=== PATIENT | female | born 1955 | race Caucasian/White ===

== ENCOUNTER → 2019-10-17 11:20 | Outpatient (CLI) | payer OTHER, SELFPAY ==
[2019-10-17 12:32] LABS: Alanine Aminotransferase 29 IU/L (<35); Albumin 4.4 g/dL (3.5-5.0); Albumin Globulin Ratio 1.2 (1.0-2.8); Alkaline Phosphatase 99 U/L (38-126); Aspartate Aminotransferase 29 IU/L (14-36); BUN Creatinine Ratio 28.1 (6-22); Bilirubin Total 0.6 mg/dL (0.2-1.3); Blood Urea Nitrogen 34 mg/dL (7-17); Calcium 9.7 mg/dL (8.4-10.2); Carbon Dioxide 29 mmol/L (22-32); Chloride 100 mmol/L (98-107); Estimated Glomerular Filt Rate 44.5 mL/min (>60); Globulin 3.8 g/dL (1.7-4.1); Glucose 121 mg/dL (80-110); HEMOLYSIS 19 (0-50); Potassium 3.8 mmol/L (3.4-5.1); Sodium 139 mmol/L (137-145); Total Protein 8.2 g/dL (6.3-8.2)
[2019-10-17 13:17] LABS: Free T4, Direct Thyroxine 1.26 ng/dL (0.78-2.19)
[2019-10-17 13:31] LABS: Thyroid Stimulating Hormone 3.58 uIU/mL (0.47-4.68)
== END ==
PROVIDERS: Family Provider Internal Medicine; PCP Internal Medicine; Referring Provider Internal Medicine; Visit Provider Internal Medicine
DX: E03.9 Hypothyroidism, unspecified (principal); I10 Essential (primary) hypertension
CPT/HCPCS: 36415; 80053; 84439; 84443

== ENCOUNTER → 2021-02-01 12:21 | Outpatient (CLI) | payer MEDICARE, OTHER, SELFPAY ==
[2021-02-01 13:21] LABS: Alanine Aminotransferase 37 IU/L (<35); Albumin 4.3 g/dL (3.5-5.0); Albumin Globulin Ratio 1.2 (1.0-2.8); Alkaline Phosphatase 87 U/L (38-126); Aspartate Aminotransferase 45 IU/L (14-36); BUN Creatinine Ratio 18.7 (6-22); Bilirubin Total 0.9 mg/dL (0.2-1.3); Blood Urea Nitrogen 20 mg/dL (7-17); Calcium 9.3 mg/dL (8.4-10.2); Carbon Dioxide 27 mmol/L (22-32); Chloride 101 mmol/L (98-107); Cholesterol 252 mg/dL (140-199); Estimated Glomerular Filt Rate 51.1 mL/min (>60); Globulin 3.7 g/dL (1.7-4.1); Glucose 114 mg/dL (80-110); HDL Cholesterol 66 mg/dL (40-60); HEMOLYSIS 30 (0-50); LDL Cholesterol Calculated 132 mg/dL (<100); Potassium 4.1 mmol/L (3.4-5.1); Sodium 136 mmol/L (137-145); Triglycerides 268 mg/dL (35-150)
[2021-02-01 13:34] LABS: Free T4, Direct Thyroxine 0.97 ng/dL (0.78-2.19)
[2021-02-01 13:48] LABS: Thyroid Stimulating Hormone 15.2 uIU/mL (0.47-4.68)
== END ==
PROVIDERS: Family Provider Internal Medicine; PCP Internal Medicine; Referring Provider Internal Medicine; Visit Provider Internal Medicine
DX: E03.9 Hypothyroidism, unspecified (principal); I10 Essential (primary) hypertension; J45.909 Unspecified asthma, uncomplicated; N18.31 Chronic kidney disease, stage 3a
CPT/HCPCS: 36415; 80053; 80061; 84439; 84443

== ENCOUNTER → 2021-05-24 16:31 | Outpatient (CLI) | payer MEDICARE, OTHER, SELFPAY ==
[2021-05-24 18:35] LABS: Thyroid Stimulating Hormone 4.52 uIU/mL (0.47-4.68)
== END ==
PROVIDERS: Family Provider Internal Medicine; PCP Internal Medicine; Referring Provider Internal Medicine; Visit Provider Internal Medicine
DX: E03.9 Hypothyroidism, unspecified (principal)
CPT/HCPCS: 36415; 84443

== ENCOUNTER → 2022-05-16 12:21 | Outpatient (CLI) | payer MEDICARE, OTHER, SELFPAY ==
[2022-05-16 13:43] LABS: Alanine Aminotransferase 31 IU/L (<35); Albumin 4.2 g/dL (3.5-5.0); Albumin Globulin Ratio 1.2 (1.0-2.8); Alkaline Phosphatase 90 U/L (38-126); Aspartate Aminotransferase 32 IU/L (14-36); BUN Creatinine Ratio 21.7 (6-22); Bilirubin Total 0.7 mg/dL (0.2-1.3); Blood Urea Nitrogen 23 mg/dL (7-17); Calcium 9.7 mg/dL (8.4-10.2); Carbon Dioxide 28 mmol/L (22-32); Chloride 97 mmol/L (98-107); Estimated Glomerular Filt Rate 57 mL/min (>60); Globulin 3.5 g/dL (1.7-4.1); Glucose 107 mg/dL (80-110); HEMOLYSIS 23 (0-50); Potassium 4.2 mmol/L (3.4-5.1); Sodium 137 mmol/L (137-145); Total Protein 7.7 g/dL (6.3-8.2)
[2022-05-16 14:00] LABS: Free T4, Direct Thyroxine 1.21 ng/dL (0.78-2.19)
[2022-05-16 14:14] LABS: Thyroid Stimulating Hormone 7.71 uIU/mL (0.47-4.68)
== END ==
PROVIDERS: Family Provider Internal Medicine; PCP Internal Medicine; Referring Provider Internal Medicine; Visit Provider Internal Medicine
DX: E03.9 Hypothyroidism, unspecified (principal); I10 Essential (primary) hypertension; N18.31 Chronic kidney disease, stage 3a
CPT/HCPCS: 36415; 80053; 84439; 84443

== ENCOUNTER → 2023-08-21 14:49 | Outpatient (CLI) | payer MEDICARE, OTHER, SELFPAY ==
[2023-08-21 16:29] LABS: Alanine Aminotransferase 29 IU/L (<35); Albumin 4.4 g/dL (3.5-5.0); Alkaline Phosphatase 84 U/L (38-126); Aspartate Aminotransferase 30 IU/L (14-36); Bilirubin Total 0.8 mg/dL (0.2-1.3); Blood Urea Nitrogen 22 mg/dL (7-17); Calcium 9.8 mg/dL (8.4-10.2); Carbon Dioxide 31 mmol/L (22-32); Chloride 99 mmol/L (98-107); Cholesterol 248 mg/dL (140-199); Estimated Glomerular Filt Rate 54 mL/min (>60); Globulin 4.2 g/dL (1.7-4.1); Glucose 84 mg/dL (80-110); HDL Cholesterol 60 mg/dL (40-60); HEMOLYSIS < 15 (0-50); LDL Cholesterol Calculated 125 mg/dL (<100); Potassium 3.6 mmol/L (3.4-5.1); Sodium 138 mmol/L (137-145); Total Protein 8.6 g/dL (6.3-8.2); Triglycerides 314 mg/dL (35-150)
[2023-08-21 16:45] LABS: Free T4, Direct Thyroxine 1.51 ng/dL (0.78-2.19)
[2023-08-21 16:59] LABS: Thyroid Stimulating Hormone 4.31 uIU/mL (0.47-4.68)
== END ==
PROVIDERS: Family Provider Internal Medicine; PCP Internal Medicine; Referring Provider Internal Medicine; Visit Provider Internal Medicine
DX: I10 Essential (primary) hypertension (principal); N18.31 Chronic kidney disease, stage 3a; E03.9 Hypothyroidism, unspecified; E78.5 Hyperlipidemia, unspecified
CPT/HCPCS: 36415; 80053; 80061; 84439; 84443

== ENCOUNTER 2023-09-28 16:08 | Emergency (ER) | payer MEDICARE, OTHER, SELFPAY ==
[2023-09-28] VITALS (19 sets, daily range): BP systolic 121–168; BP diastolic 63–83; PULSE 62–70; RESP 14–23; TEMP 37.1; O2SAT 95–98; BMI 42.8
--- NOTE | 2023-09-28 16:56 | DI.RAD.S_ITS ---
PROCEDURE: XR CHEST 1V INDICATIONS: chest pain TECHNIQUE: One view of the chest was acquired. COMPARISON: [facility], CHEST 2 VIEW, 09/28/2017, 15:15. [facility], , CHEST 2 VIEW, 08/07/2017, 15:44. FINDINGS: Surgical changes and devices: None. Lungs and pleura: Lungs are clear. No pleural effusions or pneumothorax. Mediastinum: Mediastinal contours appear normal. Heart size is normal. Bones and chest wall: No suspicious bony lesions. Overlying soft tissues appear unremarkable. IMPRESSION: No acute cardiopulmonary abnormality is seen. Approved by: Max Doherty M.D. on 09/28/2023 at 18:17
[2023-09-28] MEDS: ASPIRIN 81 MG CHEW TAB 324 MG PO (17:14)
[2023-09-28 17:42] LABS: Add Manual Diff / Slide Review NO; Basophils Absolute Auto 100 /uL (0-100); Basophils Percent Auto 0.6 % (0-2); Eosinophils Absolute Auto 100 /uL (0-450); Eosinophils Percent Auto 1.1 % (2-4); Hematocrit 46.7 % (36-46); Hemoglobin 15.4 g/dL (12.0-16.0); Lymphocytes Absolute Auto 2200 /uL (1100-4500); Lymphocytes Percent Auto 19.3 % (25-40); Mean Corpuscular HGB Conc 32.9 % (30-36); Mean Corpuscular Hemoglobin 30.5 PG (26-34); Mean Corpuscular Volume 92.8 fL (80-100); Monocytes Absolute Auto 1100 /uL (0-900); Monocytes Percent Auto 9.2 % (3-14); Neutrophils Absolute Auto 8100 /uL (1500-7000); Neutrophils Percent Auto 69.8 % (50-75); Platelet Count 258 X10^3/uL (150-400); Red Blood Cell Count 5.04 X10^6/uL (4.0-5.2); Red Cell Distribution Width 13.8 % (11.6-14.8); White Blood Cell Count 11.6 X10^3/uL (4.5-11.0)
[2023-09-28 17:50] LABS: INR 1.1 (0.9-1.3); Prothrombin Time 12.9 SECONDS (9.4-12.5)
[2023-09-28 17:53] LABS: PTT Partial Thromboplastin Tim 37 SECONDS (25.1-36.5)
[2023-09-28 17:56] LABS: Alanine Aminotransferase 22 IU/L (<35); Albumin 4.2 g/dL (3.5-5.0); Alkaline Phosphatase 93 U/L (38-126); Aspartate Aminotransferase 35 IU/L (14-36); BUN Creatinine Ratio 17.8 (6-22); Bilirubin Total 1.2 mg/dL (0.2-1.3); Blood Urea Nitrogen 23 mg/dL (7-17); Calcium 9.8 mg/dL (8.4-10.2); Carbon Dioxide 33 mmol/L (22-32); Chloride 99 mmol/L (98-107); Creatine Kinase 126 U/L (30-135); Estimated Glomerular Filt Rate 45 mL/min (>60); Globulin 4.3 g/dL (1.7-4.1); Glucose 109 mg/dL (80-110); HEMOLYSIS < 15 (0-50); Lipase 102 U/L (23-300); Magnesium 1.9 mg/dL (1.6-2.3); Potassium 3.8 mmol/L (3.4-5.1); Sodium 136 mmol/L (137-145); Total Protein 8.5 g/dL (6.3-8.2)
--- NOTE | 2023-09-28 18:40 | ED_ITS ---
HPI - Chest Pain <Angel Summers DO - Last Filed: 09/29/23 17:58> General Chief Complaint: Chest Pain Stated Complaint: chest pain/numb arms Time Seen by Provider: 09/28/23 18:32 Source: patient Mode of arrival: Ambulatory Limitations: no limitations History of Present Illness HPI narrative: Patient is a 68-year-old female who is here for evaluation of left-sided chest pain and numbness and tingling in her arms. States the pain started approximately 3 days ago. Has been consistent since then although there are periods of time and has been worse than others. Some occasional shortness of breath. No back pain. She has never had pain like this in the past. No nausea vomiting or abdominal pain or fevers. She came in today because she was finally encouraged to do so by her . She does have history of asthma. Has a history of high blood pressure. Has been taking all of her medications as directed. She currently is still having the discomfort. Related Data Home Medications Medication Instructions Recorded Confirmed beclomethasone dipropionate 80 1 inh inhalation BID 09/29/23 09/29/23 mcg/actuation HFA breath activated aerosol (Qvar RediHaler) levothyroxine 150 mcg tablet 150 mcg PO DAILY 09/29/23 09/29/23 triamterene 75 1 tab PO DAILY 09/29/23 09/29/23 mg-hydrochlorothiazide 50 mg tablet Previous Rx's Medication Instructions Recorded albuterol sulfate 90 mcg/actuation 1 puff inhalation Q4H PRN 05/01/21 aerosol inhaler (ProAir HFA) shortness of breath or wheezing #18 grams Allergies Allergy/AdvReac Type Severity Reaction Status Date / Time penicillin G [PENICILLIN G] AdvReac Unknown Verified 09/28/23 18:27 Review of Systems <Angel Summers DO - Last Filed: 09/29/23 17:58> Review of Systems ROS Unobtainable: All systems reviewed & are unremarkable except as noted in HPI and below Patient History <Angel Summers DO - Last Filed: 09/29/23 17:58> Medical History Chronic renal failure, stage 3a Asthma Hypothyroidism Hypertension Social History marital status: number of children: 1 household members: spouse lives independently: Yes caregiver/support person: No housing: house pets and animals: Yes education level: college occupational status: employed ([employer]) current occupational exposures/hazards: No leisure activities: reading and other (Socializing with friends, caregiver for mom, education for wine/alcohol.) Smoking Status: Former smoker Tobacco: How many years used: 5 Smokeless tobacco user: other (Cigarettes) quit status: quit date established (~around the age of 28.) second hand exposure: No alcohol intake: current (1 glass a day) substance use type: does not use Smoking Status: Former smoker alcohol intake frequency: a few times a week Alcohol type: wine Substance Use Type: does not use Exam <DO Leroy Aguilar Last Filed: 09/29/23 17:58> Initial Vital Signs Initial Vital Signs: Vital Signs Temperature 98.7 F 09/28/23 16:49 Pulse Rate 70 09/28/23 16:49 Respiratory Rate 16 09/28/23 16:49 Blood Pressure 168/71 H 09/28/23 16:49 Pulse Oximetry 97 09/28/23 16:49 Oxygen Delivery Method Room Air 09/28/23 16:49 Const General: cooperative, comfortable and No ill appearing HENMT Head: normal to inspection Resp Effort & Inspection: normal respiratory effort Auscultation: clear to auscultation bilaterally Cardio Rate: regular rate Rhythm: regular rhythm GI Inspection: normal to inspection and non-distended Skin General: no rashes or lesions noted Neuro General: patient alert, patient awake, patient oriented x3 and moves all extremities Extrem General: normal to inspection and capillary refill normal <Lilliana Salomon DO - Last Filed: 09/29/23 14:32> Initial Vital Signs Initial Vital Signs: Vital Signs Temperature 98.7 F 09/28/23 16:49 Pulse Rate 70 09/28/23 16:49 Respiratory Rate 16 09/28/23 16:49 Blood Pressure 168/71 H 09/28/23 16:49 Pulse Oximetry 97 09/28/23 16:49 Oxygen Delivery Method Room Air 09/28/23 16:49 Course <DO Leroy Aguilar Last Filed: 09/29/23 17:58> Orders Ordered: ED Orders 09/29/23 12:50 PTT Partial Thromboplastin Jared Q6H Discontinued Medications Aspirin (Aspirin 81 Mg Chew Tab) 324 mg PO NOW ONE Stop: 09/28/23 16:57 Last Admin: 09/28/23 17:14 Dose: 324 mg Documented By: MARQUITA Atorvastatin Calcium (Atorvastatin 20 Mg Tablet) 80 mg PO NOW ONE Stop: 09/29/23 07:34 Last Admin: 09/29/23 07:47 Dose: Not Given Documented By: SUSY Heparin Sodium (Porcine) (Heparin 5,000 Unit/Ml Vial) 5,000 unit IV NOW ONE Stop: 09/28/23 18:33 Last Admin: 09/28/23 18:44 Dose: 5,000 unit Documented By: DENA Heparin Sodium/Dextrose (Heparin Drip) 25,000 unit in 500 mls @ 31.57 mls/hr IV CONT [facility]; Protocol Last Titration: 09/29/23 14:08 Dose: 8.6 units/kg/hr, 22.625 mls/hr Documented By: BRENDON Co-signed By: SUSY Titration: 09/29/23 13:28 Dose: 8.6 units/kg/hr, 22.625 mls/hr Documented By: SUSY Co-signed By: LEONARD Titration: 09/29/23 07:52 Dose: 8.6 units/kg/hr, 22.625 mls/hr Documented By: SUSY Co-signed By: LEONARD Admin: 09/28/23 18:44 Dose: 7.6 units/kg/hr, 20 mls/hr Documented By: SPF Co-signed By: BRENDON Levothyroxine Sodium (Levothyroxine 75 Mcg Tablet) 150 mcg PO DAILY@0600 [facility] Levothyroxine Sodium (Levothyroxine 75 Mcg Tablet) 150 mcg PO DAILY@0600 [facility] Last Admin: 09/29/23 07:42 Dose: 150 mcg Documented By: SUSY Metoprolol Succinate (Metoprolol Er 50 Mg Tablet) 50 mg PO NOW ONE Stop: 09/29/23 08:07 Last Admin: 09/29/23 08:44 Dose: 50 mg Documented By: SUSY Triamterene/Hydrochlorothiazide (Triamterene/Hctz 37.5/25 Capsule) 1 cap PO DAILY [facility] Last Admin: 09/29/23 08:44 Dose: 1 cap Documented By: SUSY Vital Signs Vital signs: Vital Signs - 8 hr 09/29/23 10:00 09/29/23 10:00 09/29/23 10:30 Pulse Rate 68 67 Respiratory Rate 16 17 Blood Pressure 110/56 L Pulse Oximetry 95 96 09/29/23 10:30 09/29/23 10:42 09/29/23 11:00 Pulse Rate 67 68 Respiratory Rate 13 20 Blood Pressure 149/73 H 149/73 H Pulse Oximetry 99 94 09/29/23 11:00 09/29/23 11:30 09/29/23 11:30 Pulse Rate 67 Respiratory Rate 18 Blood Pressure 148/71 H 158/72 H Pulse Oximetry 96 09/29/23 12:00 09/29/23 12:00 09/29/23 12:30 Pulse Rate 67 68 Respiratory Rate 20 21 Blood Pressure 151/70 H Pulse Oximetry 94 94 09/29/23 12:30 09/29/23 13:00 09/29/23 13:00 Pulse Rate 69 Respiratory Rate 19 Blood Pressure 145/68 H 138/77 Pulse Oximetry 95 09/29/23 13:30 09/29/23 13:30 09/29/23 14:00 Pulse Rate 68 Respiratory Rate 21 Blood Pressure 130/69 138/71 Pulse Oximetry 93 09/29/23 14:00 Pulse Rate 72 Respiratory Rate 16 Blood Pressure Pulse Oximetry 95 <Lilliana Salomon, - Last Filed: 09/29/23 14:32> Orders Ordered: ED Orders 09/29/23 12:50 PTT Partial Thromboplastin Jared Q6H Discontinued Medications Aspirin (Aspirin 81 Mg Chew Tab) 324 mg PO NOW ONE Stop: 09/28/23 16:57 Last Admin: 09/28/23 17:14 Dose: 324 mg Documented By: SB Atorvastatin Calcium (Atorvastatin 20 Mg Tablet) 80 mg PO NOW ONE Stop: 09/29/23 07:34 Last Admin: 09/29/23 07:47 Dose: Not Given Documented By: MPO Heparin Sodium (Porcine) (Heparin 5,000 Unit/Ml Vial) 5,000 unit IV NOW ONE Stop: 09/28/23 18:33 Last Admin: 09/28/23 18:44 Dose: 5,000 unit Documented By: SPF Heparin Sodium/Dextrose (Heparin Drip) 25,000 unit in 500 mls @ 31.57 mls/hr IV CONT [facility]; Protocol Last Titration: 09/29/23 14:08 Dose: 8.6 units/kg/hr, 22.625 mls/hr Documented By: BRENDON Co-signed By: SUSY Titration: 09/29/23 13:28 Dose: 8.6 units/kg/hr, 22.625 mls/hr Documented By: SUSY Co-signed By: LEONARD Titration: 09/29/23 07:52 Dose: 8.6 units/kg/hr, 22.625 mls/hr Documented By: SUSY Co-signed By: LEONARD Admin: 09/28/23 18:44 Dose: 7.6 units/kg/hr, 20 mls/hr Documented By: DENA Co-signed By: BRENDON Levothyroxine Sodium (Levothyroxine 75 Mcg Tablet) 150 mcg PO DAILY@0600 [facility] Levothyroxine Sodium (Levothyroxine 75 Mcg Tablet) 150 mcg PO DAILY@0600 [facility] Last Admin: 09/29/23 07:42 Dose: 150 mcg Documented By: SUSY Metoprolol Succinate (Metoprolol Er 50 Mg Tablet) 50 mg PO NOW ONE Stop: 09/29/23 08:07 Last Admin: 09/29/23 08:44 Dose: 50 mg Documented By: SUSY Triamterene/Hydrochlorothiazide (Triamterene/Hctz 37.5/25 Capsule) 1 cap PO DAILY [facility] Last Admin: 09/29/23 08:44 Dose: 1 cap Documented By: SUSY Vital Signs Vital signs: Vital Signs - 8 hr 09/29/23 10:00 09/29/23 10:00 09/29/23 10:30 Pulse Rate 68 67 Respiratory Rate 16 17 Blood Pressure 110/56 L Pulse Oximetry 95 96 09/29/23 10:30 09/29/23 10:42 09/29/23 11:00 Pulse Rate 67 68 Respiratory Rate 13 20 Blood Pressure 149/73 H 149/73 H Pulse Oximetry 99 94 09/29/23 11:00 09/29/23 11:30 09/29/23 11:30 Pulse Rate 67 Respiratory Rate 18 Blood Pressure 148/71 H 158/72 H Pulse Oximetry 96 09/29/23 12:00 09/29/23 12:00 09/29/23 12:30 Pulse Rate 67 68 Respiratory Rate 20 21 Blood Pressure 151/70 H Pulse Oximetry 94 94 09/29/23 12:30 09/29/23 13:00 09/29/23 13:00 Pulse Rate 69 Respiratory Rate 19 Blood Pressure 145/68 H 138/77 Pulse Oximetry 95 09/29/23 13:30 09/29/23 13:30 09/29/23 14:00 Pulse Rate 68 Respiratory Rate 21 Blood Pressure 130/69 138/71 Pulse Oximetry 93 09/29/23 14:00 Pulse Rate 72 Respiratory Rate 16 Blood Pressure Pulse Oximetry 95 MDM - Chest Pain <Angel Summers DO - Last Filed: 09/29/23 17:58> Lab Data Attestation: I reviewed the patient's lab results. 09/29/23 06:45 09/28/23 17:32 Labs: Lab Results 09/28/23 09/29/23 09/29/23 Range/Units 17:32 00:44 06:45 WBC 11.6 H (4.5-11.0) X10^3/uL RBC 5.04 (4.0-5.2) X10^6/uL Hgb 15.4 14.3 (12.0-16.0) g/dL Hct 46.7 H 42.0 (36-46) % MCV 92.8 (80-100) fL MCH 30.5 (26-34) PG MCHC 32.9 (30-36) % RDW 13.8 (11.6-14.8) % Plt Count 258 233 (150-400) X10^3/uL Neut % (Auto) 69.8 (50-75) % Lymph % (Auto) 19.3 L (25-40) % Chester % (Auto) 9.2 (3-14) % Eos % (Auto) 1.1 L (2-4) % Baso % (Auto) 0.6 (0-2) % Neut # (Auto) 8100 H (8592-2056) /uL Lymph # (Auto) 2200 (0025-4531) /uL Chester # (Auto) 1100 H (0-900) /uL Eos # (Auto) 100 (0-450) /uL Baso # (Auto) 100 (0-100) /uL PT 12.9 H (9.4-12.5) SECONDS INR 1.1 (0.9-1.3) APTT 37 H 54 H D 42 H D (25.1-36.5) SECONDS Sodium 136 L (137-145) mmol/L Potassium 3.8 (3.4-5.1) mmol/L Chloride 99 (98-107) mmol/L Carbon Dioxide 33 H (22-32) mmol/L BUN 23 H (7-17) mg/dL Creatinine 1.29 H (0.52-1.04) mg/dL Estimated GFR 45 L (>60) mL/min BUN/Creatinine Ratio 17.8 (6-22) Glucose 109 (80-110) mg/dL Calcium 9.8 (8.4-10.2) mg/dL Magnesium 1.9 (1.6-2.3) mg/dL Total Bilirubin 1.2 (0.2-1.3) mg/dL AST 35 (14-36) IU/L ALT 22 (<35) IU/L Alkaline Phosphatase 93 (38-126) U/L Total Creatine Kinase 126 107 109 (30-135) U/L Troponin I 4.190 H* 4.210 H* 3.620 H* (0.01-0.034) ng/mL NT-Pro-B Natriuret Pep 3370 H (<125) pg/mL Total Protein 8.5 H (6.3-8.2) g/dL Albumin 4.2 (3.5-5.0) g/dL Globulin 4.3 H (1.7-4.1) g/dL Albumin/Globulin Ratio 1.0 (1.0-2.8) Lipase 102 (23-300) U/L 03//24 Range/Units 12:50 WBC (4.5-11.0) X10^3/uL RBC (4.0-5.2) X10^6/uL Hgb (12.0-16.0) g/dL Hct (36-46) % MCV (80-100) fL MCH (26-34) PG MCHC (30-36) % RDW (11.6-14.8) % Plt Count (150-400) X10^3/uL Neut % (Auto) (50-75) % Lymph % (Auto) (25-40) % Chester % (Auto) (3-14) % Eos % (Auto) (2-4) % Baso % (Auto) (0-2) % Neut # (Auto) (5238-3993) /uL Lymph # (Auto) (1440-6234) /uL Chester # (Auto) (0-900) /uL Eos # (Auto) (0-450) /uL Baso # (Auto) (0-100) /uL PT (9.4-12.5) SECONDS INR (0.9-1.3) APTT 47 H (25.1-36.5) SECONDS Sodium (137-145) mmol/L Potassium (3.4-5.1) mmol/L Chloride (98-107) mmol/L Carbon Dioxide (22-32) mmol/L BUN (7-17) mg/dL Creatinine (0.52-1.04) mg/dL Estimated GFR (>60) mL/min BUN/Creatinine Ratio (6-22) Glucose (80-110) mg/dL Calcium (8.4-10.2) mg/dL Magnesium (1.6-2.3) mg/dL Total Bilirubin (0.2-1.3) mg/dL AST (14-36) IU/L ALT (<35) IU/L Alkaline Phosphatase (38-126) U/L Total Creatine Kinase (30-135) U/L Troponin I (0.01-0.034) ng/mL NT-Pro-B Natriuret Pep (<125) pg/mL Total Protein (6.3-8.2) g/dL Albumin (3.5-5.0) g/dL Globulin (1.7-4.1) g/dL Albumin/Globulin Ratio (1.0-2.8) Lipase (23-300) U/L Imaging Data Chest x-ray: Radiologist's Impression: [address] [address] XRay Report Signed Patient: Lidya Sawyer MR#: [id number] : 1955 Acct:[id number] Age/Sex: 68 / F Date of Service: 09/28/23 Loc: ED Accession Number: [id number] Procedure: XR chest 1V Ordering Provider: Lilliana Salomon D.O. PROCEDURE: XR CHEST 1V INDICATIONS: chest pain TECHNIQUE: One view of the chest was acquired. COMPARISON: [facility] , CHEST 2 VIEW, 09/28/2017, 15:15. [facility], CR, CHEST 2 VIEW, 08/07/2017, 15:44. FINDINGS: Surgical changes and devices: None. Lungs and pleura: Lungs are clear. No pleural effusions or pneumothorax. Mediastinum: Mediastinal contours appear normal. Heart size is normal. Bones and chest wall: No suspicious bony lesions. Overlying soft tissues appear unremarkable. IMPRESSION: No acute cardiopulmonary abnormality is seen. ECG Data Interpretation: Sinus rhythm Ventricular rate is [address] T wave changes MDM Narrative Medical decision making narrative: Patient has elevated troponin. Has had 3 days of symptoms. Chest x-ray is unremarkable. Nonspecific changes on the EKG. Is currently having a small amount of chest pain. No shortness of breath. Heparin started. Will arrange for transport for Cardiology secondary to NSTEMI. Repeat troponin is relatively unchanged. Patient has been on heparin. Patient not clinically in heart failure. Discussed the case with Cardiology at [facility] who recommended admission to the medicine service. Discussed the case with Dr. Collins hospitalist on-call at [facility] who accepts patient in transfer. Patient is stable for transport. It appears that it maybe somewhat delayed with transfer given bed availability. Patient will stay here in the emergency department until disposition can be met. <Lilliana Salomon, DO - Last Filed: 09/29/23 14:32> Lab Data Labs: Lab Results 09/28/23 09/29/23 09/29/23 Range/Units 17:32 00:44 06:45 WBC 11.6 H (4.5-11.0) X10^3/uL RBC 5.04 (4.0-5.2) X10^6/uL Hgb 15.4 14.3 (12.0-16.0) g/dL Hct 46.7 H 42.0 (36-46) % MCV 92.8 (80-100) fL MCH 30.5 (26-34) PG MCHC 32.9 (30-36) % RDW 13.8 (11.6-14.8) % Plt Count 258 233 (150-400) X10^3/uL Neut % (Auto) 69.8 (50-75) % Lymph % (Auto) 19.3 L (25-40) % Chester % (Auto) 9.2 (3-14) % Eos % (Auto) 1.1 L (2-4) % Baso % (Auto) 0.6 (0-2) % Neut # (Auto) 8100 H (4835-3642) /uL Lymph # (Auto) 2200 (1058-2813) /uL Chester # (Auto) 1100 H (0-900) /uL Eos # (Auto) 100 (0-450) /uL Baso # (Auto) 100 (0-100) /uL PT 12.9 H (9.4-12.5) SECONDS INR 1.1 (0.9-1.3) APTT 37 H 54 H D 42 H D (25.1-36.5) SECONDS Sodium 136 L (137-145) mmol/L Potassium 3.8 (3.4-5.1) mmol/L Chloride 99 (98-107) mmol/L Carbon Dioxide 33 H (22-32) mmol/L BUN 23 H (7-17) mg/dL Creatinine 1.29 H (0.52-1.04) mg/dL Estimated GFR 45 L (>60) mL/min BUN/Creatinine Ratio 17.8 (6-22) Glucose 109 (80-110) mg/dL Calcium 9.8 (8.4-10.2) mg/dL Magnesium 1.9 (1.6-2.3) mg/dL Total Bilirubin 1.2 (0.2-1.3) mg/dL AST 35 (14-36) IU/L ALT 22 (<35) IU/L Alkaline Phosphatase 93 (38-126) U/L Total Creatine Kinase 126 107 109 (30-135) U/L Troponin I 4.190 H* 4.210 H* 3.620 H* (0.01-0.034) ng/mL NT-Pro-B Natriuret Pep 3370 H (<125) pg/mL Total Protein 8.5 H (6.3-8.2) g/dL Albumin 4.2 (3.5-5.0) g/dL Globulin 4.3 H (1.7-4.1) g/dL Albumin/Globulin Ratio 1.0 (1.0-2.8) Lipase 102 (23-300) U/L /24 Range/Units 12:50 WBC (4.5-11.0) X10^3/uL RBC (4.0-5.2) X10^6/uL Hgb (12.0-16.0) g/dL Hct (36-46) % MCV (80-100) fL MCH (26-34) PG MCHC (30-36) % RDW (11.6-14.8) % Plt Count (150-400) X10^3/uL Neut % (Auto) (50-75) % Lymph % (Auto) (25-40) % Chester % (Auto) (3-14) % Eos % (Auto) (2-4) % Baso % (Auto) (0-2) % Neut # (Auto) (2241-8545) /uL Lymph # (Auto) (4647-8755) /uL Chester # (Auto) (0-900) /uL Eos # (Auto) (0-450) /uL Baso # (Auto) (0-100) /uL PT (9.4-12.5) SECONDS INR (0.9-1.3) APTT 47 H (25.1-36.5) SECONDS Sodium (137-145) mmol/L Potassium (3.4-5.1) mmol/L Chloride (98-107) mmol/L Carbon Dioxide (22-32) mmol/L BUN (7-17) mg/dL Creatinine (0.52-1.04) mg/dL Estimated GFR (>60) mL/min BUN/Creatinine Ratio (6-22) Glucose (80-110) mg/dL Calcium (8.4-10.2) mg/dL Magnesium (1.6-2.3) mg/dL Total Bilirubin (0.2-1.3) mg/dL AST (14-36) IU/L ALT (<35) IU/L Alkaline Phosphatase (38-126) U/L Total Creatine Kinase (30-135) U/L Troponin I (0.01-0.034) ng/mL NT-Pro-B Natriuret Pep (<125) pg/mL Total Protein (6.3-8.2) g/dL Albumin (3.5-5.0) g/dL Globulin (1.7-4.1) g/dL Albumin/Globulin Ratio (1.0-2.8) Lipase (23-300) U/L ECG Data Interpretation: Sinus rhythm Ventricular rate is [address] T wave changes EKG 2. Sinus rhythm rate of 73 AR 146 QRS of 92 QTC 416. Q-wave in lead 3 but not into her AVF, no other acute ST changes appreciated. Patient's EKG appears quite similar to prior from last night. [facility] Narrative Medical decision making narrative: Patient has elevated troponin. Has had 3 days of symptoms. Chest x-ray is unremarkable. Nonspecific changes on the EKG. Is currently having a small amount of chest pain. No shortness of breath. Heparin started. Will arrange for transport for Cardiology secondary to NSTEMI. Repeat troponin is relatively unchanged. Patient has been on heparin. Patient not clinically in heart failure. Discussed the case with Cardiology at [facility] who recommended admission to the medicine service. Discussed the case with Dr. Collins hospitalist on-call at [facility] who accepts patient in transfer. Patient is stable for transport. It appears that it maybe somewhat delayed with transfer given bed availability. Patient will stay here in the emergency department until disposition can be met. 09/29/2023 Dr. Salomon: Patient signed out to myself by Dr. Summers. Patient has been accepted at [facility] by Cardiology and hospitalist clinical documentation specialist, waiting for bed availability. Patient's labs, EKG and chest x-ray reviewed. Repeat troponin was pending at sign-out and is trending down words. Patient was seen and evaluated by myself. Continues to be chest pain-free is currently on heparin. Last dose of aspirin was at 5:15 p.m. so we will hold on additional dose this morning. Patient's home medications has been ordered. Repeat EKG was reviewed no significant ST changes. Patient notes that she normally takes metoprolol 50 mg once daily this was added on as well. Patient continues to be asymptomatic. Bed has become available at [facility] plan for transport. Critical Care Time <Lilliana Salomon, DO - Last Filed: 09/29/23 14:32> Critical Care Time Critical Care Time: Yes Total Critical Care Time: 35 Attestation: The high probability of a clinically significant, sudden or life threatening deterioration of the [cardiac, pulm] system(s) required my full and direct attention, intervention and personal management. The aggregate critical care time was [] minutes. This time is in addition to time spent performing reported procedures but includes the following: [x] Data Review and interpretation [x] Patient assessment and monitoring of vital signs [x] Documentation [x] Medication orders and management Discharge Plan Departure Patient Disposition: [facility] Clinical Impression: Non-ST elevation WI (NSTEMI) Prescriptions: No Action albuterol sulfate [ProAir HFA] 90 mcg/actuation HFA aerosol inhaler 1 puff INHALATION Q4H PRN (Reason: shortness of breath or wheezing) Qty: 18 9RF levothyroxine 150 mcg tablet 150 mcg PO DAILY triamterene-hydrochlorothiazid 75-50 mg tablet 1 tab PO DAILY Qvar RediHaler 80 mcg/actuation HFA aerosol breath activated 1 inh inhalation BID Referrals: Evgeny Patel MD [Primary Care Provider] -
[2023-09-28] MEDS: HEPARIN 5,000 UNIT/ML VIAL 5000 UNIT IV (18:44)
[2023-09-28] MEDS: HEPARIN DRIP 25,000 UNIT/500 ML IV.SOLN 20 UNIT IV (18:44)
--- NOTE | 2023-09-28 18:45 | PC.NURSE ---
Pt reports chest pain and bilateral arm numbness/pain that started 3 days ago. Pt denies significant medical history, stating she does not frequent the doctor's. Pt is SOB with exertion and has been sleeping in her recliner, experiencing orthopnea. chest pain is minimal at a 1/10 and for that reason pt did not seek urgent care, and didnt want to bother the doctor on the weekend.
[2023-09-28 18:48] LABS: NT-proBNP (BNP-Adult 18+) 3370 pg/mL (<125)
[2023-09-29] VITALS (34 sets, daily range): BP systolic 110–158; BP diastolic 55–80; PULSE 66–80; RESP 11–28; O2SAT 92–99; BMI 42.8
--- NOTE | 2023-09-29 00:12 | PC.NURSE ---
Addendum entered by Oli Tyson 09/29/23 02:58: Pt accepted at [facility] by Dr. Collins. waiting on bed assignment sometime during dayshift Original Note: Pt being reviewed for transfer at the following: ERIKA Richter, Joss waiting for call back by morning. [facility] full and boarding
[2023-09-29 01:01] LABS: PTT Partial Thromboplastin Tim 54 SECONDS (25.1-36.5)
[2023-09-29 01:10] LABS: Creatine Kinase 107 U/L (30-135)
[2023-09-29 06:58] LABS: Hemoglobin 14.3 g/dL (12.0-16.0); Platelet Count 233 X10^3/uL (150-400)
[2023-09-29 07:07] LABS: PTT Partial Thromboplastin Tim 42 SECONDS (25.1-36.5)
[2023-09-29 07:08] LABS: Creatine Kinase 109 U/L (30-135)
[2023-09-29] MEDS: LEVOTHYROXINE 75 MCG TABLET 150 MCG PO (07:42)
--- NOTE | 2023-09-29 08:39 | PC.NURSE ---
spoke with Jenna at [facility] pt is assigned to [facility] still no update on bed assignment but per Jenna sometime today.
[2023-09-29] MEDS: METOPROLOL ER 50 MG TABLET PO (08:44)
[2023-09-29] MEDS: TRIAMTERENE/HCTZ 37.5/25 CAPSULE 1 CAP PO (08:44)
[2023-09-29 13:11] LABS: PTT Partial Thromboplastin Tim 47 SECONDS (25.1-36.5)
--- NOTE | 2023-09-29 13:27 | PC.NURSE ---
PT 47. No changes to heparin drip per hospital heparin protocol. Heparin currently 8.6 units/kg/hr
== END 2023-09-29 14:16 | disposition short-term general hospital (02) ==
PROVIDERS: Emergency Medicine; Emergency Provider Emergency Medicine; Family Provider Internal Medicine; PCP Internal Medicine
DX: I21.4 Non-ST elevation (NSTEMI) myocardial infarction (principal); R07.9 Chest pain, unspecified; R06.02 Shortness of breath; R79.89 Other specified abnormal findings of blood chemistry
CPT/HCPCS: 36415; 71045; 80053; 82550; 83690; 83735; 83880; 84484; 85014; 85018; 85025; 85049; 85610; 85730; 93005; 96365; 96366; 96375; 99285; 99291; J1644

== ENCOUNTER 2024-06-22 14:15 | Outpatient (RCR) | payer MEDICARE, OTHER, SELFPAY ==
[2023-09-29 10:42] VITALS: BMI 42.8
== END 2024-06-22 16:15 ==
LOC: CAR 14:15
PROVIDERS: Family Provider Internal Medicine; PCP Internal Medicine; Referring Provider Internal Medicine Cardiovascular Disease; Visit Provider Internal Medicine Cardiovascular Disease
DX: Z95.5 Presence of coronary angioplasty implant and graft (principal); I21.3 ST elevation (STEMI) myocardial infarction of unspecified site
CPT/HCPCS: 93798

== ENCOUNTER → 2024-06-30 15:43 | Outpatient (CLI) | payer MEDICARE, OTHER, SELFPAY ==
[2023-09-29 10:42] VITALS: BMI 42.8
[2024-06-30 17:25] LABS: Hematocrit 47.1 % (36-46); Hemoglobin 15.7 g/dL (12.0-16.0); Mean Corpuscular HGB Conc 33.3 % (30-36); Mean Corpuscular Hemoglobin 31.6 PG (26-34); Platelet Count 255 X10^3/uL (150-400); Red Blood Cell Count 4.96 X10^6/uL (4.0-5.2); Red Cell Distribution Width 13.7 % (11.6-14.8); White Blood Cell Count 7.7 X10^3/uL (4.5-11.0)
[2024-06-30 18:08] LABS: BUN Creatinine Ratio 24.1 (6-22); Blood Urea Nitrogen 27 mg/dL (7-17); Calcium 9.7 mg/dL (8.4-10.2); Carbon Dioxide 32 mmol/L (22-32); Chloride 102 mmol/L (98-107); Cholesterol 139 mg/dL (140-199); Estimated Glomerular Filt Rate 53 mL/min (>60); Glucose 93 mg/dL (80-110); HDL Cholesterol 79 mg/dL (40-60); HEMOLYSIS < 15 (0-50); LDL Cholesterol Calculated 34 mg/dL (<100); Potassium 4.7 mmol/L (3.4-5.1); Sodium 136 mmol/L (137-145); Triglycerides 131 mg/dL (35-150)
== END ==
LOC: LAB 15:45
PROVIDERS: Family Provider Internal Medicine; PCP Internal Medicine; Referring Provider Internal Medicine Cardiovascular Disease; Visit Provider Internal Medicine Cardiovascular Disease
DX: I25.10 Atherosclerotic heart disease of native coronary artery without angina pectoris (principal)
CPT/HCPCS: 36415; 80048; 80061; 85027

== ENCOUNTER → 2025-01-06 14:57 | Outpatient (CLI) | payer MEDICARE, OTHER, SELFPAY ==
[2023-09-29 10:42] VITALS: BMI 42.8
[2025-01-06 16:10] LABS: Alanine Aminotransferase 22 IU/L (<35); Albumin 4.2 g/dL (3.5-5.0); Albumin Globulin Ratio 1.4 (1.0-2.8); Alkaline Phosphatase 101 U/L (38-126); Aspartate Aminotransferase 22 IU/L (14-36); BUN Creatinine Ratio 18.2 (6-22); Blood Urea Nitrogen 20 mg/dL (7-17); Calcium 9.5 mg/dL (8.4-10.2); Carbon Dioxide 29 mmol/L (22-32); Chloride 100 mmol/L (98-107); Cholesterol 135 mg/dL (140-199); Estimated Glomerular Filt Rate 54 mL/min (>60); Glucose 117 mg/dL (70-99); HDL Cholesterol 75 mg/dL (40-60); HEMOLYSIS < 15 (0-50); LDL Cholesterol Calculated 26 mg/dL (<100); Potassium 4.4 mmol/L (3.4-5.1); Sodium 137 mmol/L (137-145); Total Protein 7.2 g/dL (6.3-8.2); Triglycerides 170 mg/dL (35-150)
[2025-01-06 16:26] LABS: Free T4, Direct Thyroxine 1.28 ng/dL (0.78-2.19)
[2025-01-06 16:40] LABS: Thyroid Stimulating Hormone 4.98 uIU/mL (0.47-4.68)
== END ==
PROVIDERS: Family Provider Internal Medicine; PCP Internal Medicine; Referring Provider Internal Medicine; Visit Provider Internal Medicine
DX: I10 Essential (primary) hypertension (principal); E03.9 Hypothyroidism, unspecified
CPT/HCPCS: 36415; 80053; 80061; 84439; 84443